=== PATIENT | male | born 1960 | race Caucasian/White ===

== ENCOUNTER 2018-06-13 11:32 | Emergency (ER) | payer BC, SELFPAY ==
[2018-06-13] VITALS (11 sets, daily range): BP systolic 139–161; BP diastolic 97–111; PULSE 116–130; RESP 17–23; TEMP 37.7; O2SAT 94–98
--- NOTE | 2018-06-13 11:42 | DI.RAD.S_ITS ---
PROCEDURE: XR CHEST 1V INDICATIONS: chest pain TECHNIQUE: One view of the chest was acquired. COMPARISON: [facility], , CHEST 2 VIEW, 06/10/2017, 9:02. FINDINGS: Surgical changes and devices: None. Lungs and pleura: Elevation of the right diaphragm is present, similar to the prior study. There may be areas of scarring versus atelectasis at the right lung base. No focal consolidation, effusion, or pneumothorax is evident. Mediastinum: Mediastinal contours appear normal. Heart size is normal. Bones and chest wall: No suspicious bony lesions. Overlying soft tissues appear unremarkable. IMPRESSION: Stable chest. No acute cardiopulmonary process is evident. Dictated by: Dileep Haney M.D. on 06/13/2018 at 11:33 Approved by: Dileep Haney M.D. on 06/13/2018 at 11:36
[2018-06-13 12:01] LABS: Add Manual Diff / Slide Review NO; Basophils Percent Auto 0.3 % (0-2); Hematocrit 41.5 % (41-53); Hemoglobin 14.2 g/dL (13.5-17.5); Lymphocytes Percent Auto 10.3 % (25-40); Mean Corpuscular HGB Conc 34.2 % (30-36); Mean Corpuscular Hemoglobin 33.7 PG (26-34); Mean Corpuscular Volume 98.6 fL (80-100); Monocytes Percent Auto 5.1 % (3-14); Neutrophils Absolute Auto 9800 /uL (1500-7000); Neutrophils Percent Auto 84.3 % (50-75); Platelet Count 244 X10^3/uL (150-400); Red Blood Cell Count 4.21 X10^6/uL (4.5-5.9); Red Cell Distribution Width 13.9 % (11.6-14.8); White Blood Cell Count 11.6 X10^3/uL (4.5-11.0)
[2018-06-13 12:04] LABS: INR 0.9 (0.9-1.3); Prothrombin Time 10.7 SECONDS (10.1-12.7)
[2018-06-13 12:07] LABS: PTT Partial Thromboplastin Tim 25 SECONDS (26.4-36.2)
[2018-06-13 12:09] LABS: Alanine Aminotransferase 39 IU/L (21-72); Albumin 4.7 g/dL (3.5-5.0); Albumin Globulin Ratio 1.7 (1.0-2.8); Alkaline Phosphatase 64 U/L (38-126); Aspartate Aminotransferase 46 IU/L (17-59); BUN Creatinine Ratio 26.3 (6-22); Bilirubin Total 0.7 mg/dL (0.2-1.3); Blood Urea Nitrogen 21 mg/dL (9-20); Calcium 9.4 mg/dL (8.4-10.2); Carbon Dioxide 23 mmol/L (22-32); Chloride 99 mmol/L (98-107); Creatine Kinase 109 U/L (55-170); Estimated Glomerular Filt Rate > 60.0 mL/min (>60); Globulin 2.7 g/dL (1.7-4.1); Glucose 138 mg/dL (70-100); Lipase 380 U/L (23-300); Potassium 3.8 mmol/L (3.4-5.1); Sodium 139 mmol/L (137-145); Total Protein 7.4 g/dL (6.3-8.2)
[2018-06-13 12:23] LABS: Troponin I < 0.012 ng/mL (0.01-0.034)
--- NOTE | 2018-06-13 12:25 | DI.CT.S_ITS ---
PROCEDURE: CT HEAD/BRAIN WO CON INDICATIONS: syncope TECHNIQUE: Noncontrast 4.5 mm thick angled axial sections acquired from the foramen magnum to the vertex, with coronal and sagittal reformats. For radiation dose reduction, the following was used: automated exposure control, adjustment of mA and/or kV according to patient size. COMPARISON: 09/10/12. FINDINGS: Image quality: Excellent. CSF spaces: Basal cisterns are patent. No extra-axial fluid collections. Ventricles are normal in size and shape. Brain: No intracranial hemorrhage, mass, or mass effect. Morse-white matter interface is preserved. Skull and face: Calvarium and visualized facial bones are intact, without suspicious lesions. Sinuses: Visualized sinuses and mastoids are clear. IMPRESSION: 1. No acute intracranial abnormality. Dictated by: Twin Ravi M.D. on 06/13/2018 at 13:15 Approved by: Twin Ravi M.D. on 06/13/2018 at 13:17
[2018-06-13 12:27] LABS: CKMB % Relative Index 0.6 % (1.5-5.0); HEMOLYSIS < 15 (0-50)
--- NOTE | 2018-06-13 12:32 | ED.SYNCOPE ---
HPI - Syncope General Chief Complaint: Syncope Stated Complaint: Syncope Time Seen by Provider: 06/13/18 12:01 Source: patient, EMS and other (co-woker) Mode of arrival: EMS Limitations: no limitations History of Present Illness HPI narrative: This is a 58-year-old male who comes to the emergency department with complaint of syncope. Patient was in a meeting today. He had a witnessed syncopal episode where he had loss of consciousness was out for at least 45-60 seconds. Sounds like he returned to mental baseline fairly quickly. He did have an episode of emesis about the same time he had loss of consciousness. Afterwards his co-worker noted he was very shaky and pale. They called for help when EMS came. Patient has continued to feel shaky. He denies any chest pressure, no shortness of breath. He felt very hot right before he had a loss of consciousness. He denies any nausea or vomiting otherwise and has not had any since then. Denies any swelling in his lower extremities. He has not had similar episodes in the past. He denies any headache, no vision changes, no numbness or weakness. Patient does take medication for blood pressure including lisinopril in the morning which he took and his amlodipine at night she normally takes. He denies any diabetes, dyslipidemia chronic kidney disease. He does drink 3-4 alcoholic drinks daily, he states that he did have his normal amount last night. He denies any illicit. He denies any known cardiac, pulmonary or DVT/embolic history. Related Data Home Medications Medication Instructions Recorded Confirmed amlodipine 10 mg PO QPM 06/13/18 06/13/18 lisinopril-hydrochlorothiazide 1 tab PO DAILY 06/13/18 06/13/18 [id number]-[id number]-OM-lycopen-lutein 1 tab PO DAILY 06/13/18 06/13/18 [Centrum Silver] Allergies Allergy/AdvReac Type Severity Reaction Status Date / Time No Known Drug Allergies Allergy Verified 06/13/18 11:42 Review of Systems Review of Systems All systems reviewed & are unremarkable except as noted in HPI and below Constitutional Denies chills, Denies excessive sweating, Denies fever(s), Denies frequent falls, Denies headache(s), Denies lethargy and Denies weakness ENT Ears, Nose, Mouth, and Throat: Denies headache(s) and Denies neck pain Cardiovascular Denies chest pain, Denies diaphoresis, Reports syncope, Denies edema, Denies irregular heart rhythm, Denies lightheadedness, Denies radiating jaw, neck or arm pain, Denies palpitations, Denies dyspnea and Denies orthopnea Respiratory Denies chest congestion, Denies cough, Denies pain on inspiration, Denies pain with cough, Denies dyspnea and Denies wheezing Gastrointestinal Gastrointestinal: Denies abdominal pain, Denies change in bowel habits, Denies fecal incontinence, Denies diarrhea, Denies nausea and Reports vomiting (X1 was syncopal episode) Genitourinary Denies dysuria, Denies urinary frequency, Denies urinary hesitancy and Denies urinary incontinence Musculoskeletal Denies back pain, Denies neck pain and Denies numbness Neurologic Denies abnormal speech, Denies confusion, Reports syncope, Denies frequent falls, Denies headache(s), Denies focal weakness, Denies numbness, Reports tremor(s) (Feel shaky) and Denies weakness Psychiatric Denies confusion Endocrine Denies excessive sweating and Denies palpitations Allergic/Immunologic Denies wheezing [facility] Medical History Hypertension (Acute) Surgical History H/O hernia repair (Acute) History of tonsillectomy (Acute) Family History Grandmother No problems noted. Social History Smoking Status: Unknown if ever smoked alcohol intake: current substance use type: does not use Exam Narrative Exam Narrative: GEN: Well-nourished male, alert and oriented x 3, patient appears to be in mild distress. HEENT: Atraumatic, pupils are equal round reactive to light, extraocular movements are intact, nares are clear, TMs are clear with no fluid, there is no conjunctival pallor. Throat is clear without any exudates, erythema, tonsillar enlargement or uvular deviation, HEART: Tachycardic but regular rate and rhythm without murmur, clicks, rubs. Pulses are equal in upper and lower extremities. LUNGS:Lungs clear to auscultation, no wheezes, rales, crackles, chest moves symmetrically, no tachypnea, no accessory muscle use. ABD:bowel sounds normal, soft, non-tender, no guarding, rebound, rigidity, no masses noted, no hepatosplenomegaly, no bruit or pulsatile mass. :No CVA tenderness MSCL: Non-tender, no muscle atrophy, muscles strength 5/5 upper and lower extremities, full range of motion NEURO:CN 2-12 intact, sensation normal, reflexes 2/4 upper and lower extremities, patient has slight generalized tremor. Initial Vital Signs Initial Vital Signs: Vital Signs Temperature 99.9 F H 06/13/18 11:38 Pulse Rate 130 H 06/13/18 11:38 Respiratory Rate 23 06/13/18 11:38 Blood Pressure 156/99 H 06/13/18 11:38 Pulse Oximetry 96 06/13/18 11:38 Course Orders Ordered: ED Orders 06/13/18 11:42 XR chest 1V Stat EKG-12 Lead Stat 06/13/18 11:51 Complete Blood Count AUTO DIFF Stat Comprehensive Metabolic Panel Stat Ethanol (ETOH) Stat Lipase Stat Partial Thromboplastin Time Stat Prothrombin Time INR Stat Troponin & CK Cardiac Panel Stat 06/13/18 12:25 CT head/brain wo con Stat 06/13/18 14:42 CT angio chest PE protocol Stat 06/13/18 14:43 US abdomen limited Stat 06/13/18 16:18 Urine Drug Screen, Rapid Stat Discontinued Medications Sodium Chloride (Normal Saline 0.9%) 1,000 mls @ 1,000 mls/hr IV BOLUS ONE Stop: 06/13/18 13:48 Last Infusion: 06/13/18 14:27 Dose: 0 mls/hr Admin: 06/13/18 12:53 Dose: 1,000 mls/hr Sodium Chloride (Normal Saline 0.9%) 500 mls @ 1,000 mls/hr IV BOLUS ONE Stop: 06/13/18 14:47 Last Admin: 06/13/18 14:29 Dose: Sodium Chloride (Normal Saline 0.9%) 1,000 mls @ 1,000 mls/hr IV BOLUS ONE Stop: 06/13/18 15:27 Last Admin: 06/13/18 14:30 Dose: 1,000 mls/hr Lorazepam (Ativan) 1 mg IV NOW ONE Stop: 06/13/18 12:50 Last Admin: 06/13/18 12:53 Dose: 1 mg Lorazepam (Ativan) 1 mg PO NOW ONE Stop: 06/13/18 14:39 Last Admin: 06/13/18 14:56 Dose: Lorazepam (Ativan) 1 mg IV NOW ONE Stop: 06/13/18 14:57 Last Admin: 06/13/18 14:57 Dose: 1 mg Vital Signs - 8 hr 06/13/18 11:38 06/13/18 12:00 06/13/18 12:30 Temperature 99.9 F H Pulse Rate 130 H 122 H 126 H Respiratory Rate 23 17 17 Blood Pressure 156/99 H Blood Pressure [Left Arm] 139/101 H 161/97 H Pulse Oximetry 96 95 94 06/13/18 13:09 06/13/18 13:30 06/13/18 14:00 Temperature Pulse Rate 124 H 123 H 124 H Respiratory Rate 21 20 21 Blood Pressure Blood Pressure [Left Arm] 161/104 H 154/111 H 151/103 H Pulse Oximetry 94 95 95 06/13/18 14:36 06/13/18 15:31 06/13/18 16:05 Temperature Pulse Rate 123 H 116 H 119 H Respiratory Rate 18 17 17 Blood Pressure Blood Pressure [Left Arm] 154/110 H 146/107 H 152/107 H Pulse Oximetry 95 94 98 06/13/18 16:30 06/13/18 17:00 Temperature Pulse Rate 117 H 129 H Respiratory Rate 19 Blood Pressure Blood Pressure [Left Arm] 143/105 H 156/109 H Pulse Oximetry 94 95 MDM - Syncope Lab Data Attestation: I reviewed the patient's lab results. Result diagrams: 06/13/18 11:51 06/13/18 11:51 Lab Results 06/13/18 06/13/18 06/13/18 Range/Units 11:51 11:51 11:51 WBC 11.6 H (4.5-11.0) X10^3/uL RBC 4.21 L (4.5-5.9) X10^6/uL Hgb 14.2 (13.5-17.5) g/dL Hct 41.5 (41-53) % MCV 98.6 (80-100) fL MCH 33.7 (26-34) PG MCHC 34.2 (30-36) % RDW 13.9 (11.6-14.8) % Plt Count 244 (150-400) X10^3/uL Neut % (Auto) 84.3 H (50-75) % Lymph % (Auto) 10.3 L (25-40) % [place] % (Auto) 5.1 (3-14) % Eos % (Auto) 0.0 L (2-4) % Baso % (Auto) 0.3 (0-2) % Neut # (Auto) 9800 H (5585-0602) /uL PT 10.7 (10.1-12.7) SECONDS INR 0.9 (0.9-1.3) APTT 25 L (26.4-36.2) SECONDS Sodium 139 (137-145) mmol/L Potassium 3.8 (3.4-5.1) mmol/L Chloride 99 (98-107) mmol/L Carbon Dioxide 23 (22-32) mmol/L BUN 21 H (9-20) mg/dL Creatinine 0.80 (0.66-1.25) mg/dL Estimated GFR > 60.0 (>60) mL/min BUN/Creatinine Ratio 26.3 H (6-22) Glucose 138 H (70-100) mg/dL Calcium 9.4 (8.4-10.2) mg/dL Total Bilirubin 0.7 (0.2-1.3) mg/dL AST 46 (17-59) IU/L ALT 39 (21-72) IU/L Alkaline Phosphatase 64 (38-126) U/L Total Creatine Kinase 109 (55-170) U/L CK-MB (CK-2) 0.70 (<2.37) ng/mL CK-MB (CK-2) Rel Index 0.6 L (1.5-5.0) % Troponin I < 0.012 (0.01-0.034) ng/mL Total Protein 7.4 (6.3-8.2) g/dL Albumin 4.7 (3.5-5.0) g/dL Globulin 2.7 (1.7-4.1) g/dL Albumin/Globulin Ratio 1.7 (1.0-2.8) Lipase 380 H (23-300) U/L Urine Opiates Screen (Negative) Ur Oxycodone Screen (Negative) Urine Methadone Screen (Negative) Ur Barbiturates Screen (Negative) U Tricyclic Antidepress (Negative) Ur Phencyclidine Scrn (Negative) Ur Amphetamines Screen (Negative) U Methamphetamines Scrn (Negative) Ur MDMA Scrn (Ecstasy) (Negative) U Benzodiazepines Scrn (Negative) Urine Cocaine Screen (Negative) U Marijuana (THC) Screen (Negative) Ethyl Alcohol mg/dL 06/13/18 06/13/18 Range/Units 11:51 16:18 WBC (4.5-11.0) X10^3/uL RBC (4.5-5.9) X10^6/uL Hgb (13.5-17.5) g/dL Hct (41-53) % MCV (80-100) fL MCH (26-34) PG MCHC (30-36) % RDW (11.6-14.8) % Plt Count (150-400) X10^3/uL Neut % (Auto) (50-75) % Lymph % (Auto) (25-40) % [place] % (Auto) (3-14) % Eos % (Auto) (2-4) % Baso % (Auto) (0-2) % Neut # (Auto) (8370-3865) /uL PT (10.1-12.7) SECONDS INR (0.9-1.3) APTT (26.4-36.2) SECONDS Sodium (137-145) mmol/L Potassium (3.4-5.1) mmol/L Chloride (98-107) mmol/L Carbon Dioxide (22-32) mmol/L BUN (9-20) mg/dL Creatinine (0.66-1.25) mg/dL Estimated GFR (>60) mL/min BUN/Creatinine Ratio (6-22) Glucose (70-100) mg/dL Calcium (8.4-10.2) mg/dL Total Bilirubin (0.2-1.3) mg/dL AST (17-59) IU/L ALT (21-72) IU/L Alkaline Phosphatase (38-126) U/L Total Creatine Kinase (55-170) U/L CK-MB (CK-2) (<2.37) ng/mL CK-MB (CK-2) Rel Index (1.5-5.0) % Troponin I (0.01-0.034) ng/mL Total Protein (6.3-8.2) g/dL Albumin (3.5-5.0) g/dL Globulin (1.7-4.1) g/dL Albumin/Globulin Ratio (1.0-2.8) Lipase (23-300) U/L Urine Opiates Screen Negative (Negative) Ur Oxycodone Screen Negative (Negative) Urine Methadone Screen Negative (Negative) Ur Barbiturates Screen Negative (Negative) U Tricyclic Antidepress Negative (Negative) Ur Phencyclidine Scrn Negative (Negative) Ur Amphetamines Screen Negative (Negative) U Methamphetamines Scrn Negative (Negative) Ur MDMA Scrn (Ecstasy) Negative (Negative) U Benzodiazepines Scrn Negative (Negative) Urine Cocaine Screen Negative (Negative) U Marijuana (THC) Screen Negative (Negative) Ethyl Alcohol 16 mg/dL Point of Care Testing Glucose POC 118 Urine Dip Bedside Urine Glucose Negative Bedside Urine Bilirubin - Negative Bedside Urine Ketone ++ 40 Urine Specific [place] 1.015 Bedside Urine Occult Blood - Negative Bedside Urine pH 7.0 Bedside Urine Protein - Negative Bedside Urine Urobilinogen - Negative Bedside Urine Nitrite - Negative Bedside Urine Leukocytes - Negative Esterase Imaging Data Chest x-ray: Radiologist's impression: [address] [address] XRay Report Signed Patient: Power Viveros I MR#: [id number] : 1960 Acct:[id number] Age/Sex: 58 / M Date of Service: 06/13/18 Loc: ED Accession Number: [id number] Procedure: XR chest 1V Ordering Provider: Harini Barahona D.O. PROCEDURE: XR CHEST 1V INDICATIONS: chest pain TECHNIQUE: One view of the chest was acquired. COMPARISON: [facility], CHEST 2 VIEW, 06/10/2017, 9:02. FINDINGS: Surgical changes and devices: None. Lungs and pleura: Elevation of the right diaphragm is present, similar to the prior study. There may be areas of scarring versus atelectasis at the right lung base. No focal consolidation, effusion, or pneumothorax is evident. Mediastinum: Mediastinal contours appear normal. Heart size is normal. Bones and chest wall: No suspicious bony lesions. Overlying soft tissues appear unremarkable. IMPRESSION: Stable chest. No acute cardiopulmonary process is evident. Dictated by: Dileep Haney M.D. on 06/13/2018 at 11:33 Approved by: Dileep Haney M.D. on 06/13/2018 at 11:36 chest CTA: Radiologist's impression: [address] [address] [address] Scan Report Signed Patient: JackelineJanuary MR#: [id number] : 1960 Acct:[id number] Age/Sex: 58 / M Date of Service: 06/13/18 Loc: ED Accession Number: [id number] Procedure: CT angio chest PE protocol Ordering Provider: Harini Barahona D.O. PROCEDURE: CT ANGIO CHEST PE PROTOCOL INDICATIONS: syncope, tachycardia TECHNIQUE: After the administration of intravenous contrast, 2 mm thick sections acquired from the pulmonary apices to the posterior costophrenic angles. 3-dimensional maximum intensity projection (MIP) coronal and sagittal reformats were then acquired through the thorax. For radiation dose reduction, the following was used: automated exposure control, adjustment of mA and/or kV according to patient size. COMPARISON: [facility], CT, THORAX WITH CONTRAST, 02/21/2015, 9:23. [facility], CR, XR CHEST 1V, 06/13/2018, 12:24. FINDINGS: Image quality: There is slight motion artifact. Pulmonary arteries: There is suboptimal contrast opacification of the pulmonary arteries with nondiagnostic evaluation beyond the level of the right and left lobar pulmonary arteries. Lungs and pleura: There is mild atelectasis within the right lower lobe posteriorly. Minimal atelectasis also demonstrated in the left lower lobe. No definite consolidation. No pleural effusions or pneumothorax. Central and peripheral airways are patent. Mediastinum: Heart size is normal, without pericardial effusion. No mediastinal or hilar adenopathy. Thoracic aorta is normal in caliber and enhancement. There is a small hernia with mild concentric wall thickening of the distal esophagus. Bones and chest wall: No suspicious bony lesions. Ribs and thoracic spine appear intact throughout. Thyroid gland demonstrates a small hypoattenuating nodule in the left lobe measuring approximately 0.6 cm. No axillary or supraclavicular adenopathy. Abdomen: There is elevation of the right hemidiaphragm redemonstrated. There is hyperattenuation of the visualized liver compatible with fatty infiltration. Colonic diverticulosis is noted in the visualized upper abdomen. IMPRESSION: 1. Limited study for pulmonary embolism with nondiagnostic evaluation beyond the level of the main right or left lobar pulmonary arteries. 2. Mild atelectasis in the lung bases, right greater than left. 3. Small hilar hernia with mild concentric wall thickening in the distal esophagus suggestive of a nonspecific esophagitis. The findings may be associated with reflux. Dictated by: Twin Ravi M.D. on 06/13/2018 at 15:39 Approved by: Twin Ravi M.D. on 06/13/2018 at 15:46 US - abdomen: Radiologist's impression: [address] [address] Ultrasound Report Signed Patient: JackelineJanuary MR#: [id number] : 1960 Acct:[id number] Age/Sex: 58 / M Date of Service: 06/13/18 Loc: ED Accession Number: [id number] Procedure: US abdomen limited Ordering Provider: Harini Barahona D.O. PROCEDURE: US ABDOMEN LIMITED INDICATIONS: elevated lipase, syncope TECHNIQUE: Real-time focused scanning was performed of the abdomen, with image documentation. COMPARISON: [facility], CT, CT ANGIO CHEST PE PROTOCOL, 06/13/2018, 14:58. FINDINGS: Image portions of the liver demonstrate diffusely increased echogenicity, which does result in difficulty evaluating the liver for liver lesions. No large liver lesions are evident. No intrahepatic or extrahepatic biliary dilatation is appreciated. The common bile duct measures up to approximately 6 mm in diameter. The gallbladder is slightly small in size. No cholelithiasis or gallbladder wall inflammation is appreciated. The pancreas is obscured by bowel gas. IMPRESSION: 1. No cholelithiasis or evidence of acute cholecystitis. 2. Hepatic steatosis. Please correlate clinically to exclude other chronic diseases. Dictated by: Dileep Haney M.D. on 06/13/2018 at 15:51 Approved by: Dileep Haney M.D. on 06/13/2018 at 15:52 ECG Data Attestation: I personally reviewed and interpreted this ECG as follows: Prior ECG tracings: not available for review Interpretation: Sinus tachycardia with a ventricular rate of 120 P are interval of 181 [place] 93 and QTC of 378. Patient does not have any clear ST changes. Does have some PVCs noted. Patient has Q-wave in 2 3 in AVF. MDM Narrative Medical decision making narrative: Patient comes in with syncopal episode, he continues to be tachycardic and shaky throughout his stay. He does seem to respond a little bit Ativan but not in its entirety and he had 2 L of fluid. Patient had cardiac workup including a PE protocol Um an abdominal ultrasound is his lipase was slightly elevated. Discussed with patient he has a decent alcohol intake and per his co-worker to a nursing they have been concerned about his alcohol intake for a long time. We discussed this could be some withdrawal symptoms which patient deny talked about he states he has had a little bit of symptoms in the past but not regularly. We also discussed other causes including a cardiac cause, he could have a small pulmonary emboli as his CTA was not fully diagnostic in the smaller vessels versus other cause and I recommend observation overnight. Patient is reluctant to do this, he does seem alert and competent and oriented appropriately. His significant other was his girlfriend is at bedside she is also aware of our recommendations and patient prefers to return he did discuss the risk and benefits with us. As patient sign out against medical advice as I do not recommend sending him home, I did offer to contact his primary care and spoke with Dr. Lehman who is covering for Shelly Aldana his provider. Updated her on today's findings and concerns. Discharge Plan Departure Patient Disposition: Left Against Medical Advice Clinical Impression: Syncope, Tachycardia Discharge Date/Time: 06/13/18 17:22 Interventions: ED Discharge Assessment Last Done: 06/13/18 17:19 Instructions: DI for Syncope in Adults (Fainting) Activity Restrictions/Additional Instructions: Return to the ER at any time if you are feeling worse, have recurrent syncope/passing out, chest pain, shortness of breath, persistent vomiting, black or bloody stools, weakness, altered mental status or other new or concerning symptoms. We cannot rule out a cardiac cause (heart attack, etc), pulmonary or other cause of your symptoms today. Follow up with your primary care physician in the next 24 hours for recheck. Continue your home medications. Prescriptions: No Action amlodipine 10 mg tablet 10 mg PO QPM RF: 0 lisinopril-hydrochlorothiazide 20-25 mg tablet 1 tab PO DAILY RF: 0 oilreqzr-eyw-RV-lycopen-lutein [Centrum Silver] 0.4-300-250 mg-mcg-mcg Tablet 1 tab PO DAILY RF: 0 Referrals: Shelly Aldana PA-C [Primary Care Provider] - Stand Alone Forms: Against Medical Advice
--- NOTE | 2018-06-13 12:46 | ED_ITS ---
HPI - Syncope General Chief Complaint: Syncope Stated Complaint: Syncope Time Seen by Provider: 06/13/18 12:01 Source: patient, EMS and other (co-woker) Mode of arrival: EMS Limitations: no limitations History of Present Illness HPI narrative: This is a 58-year-old male who comes to the emergency department with complaint of syncope. Patient was in a meeting today. He had a witnessed syncopal episode where he had loss of consciousness was out for at least 45-60 seconds. Sounds like he returned to mental baseline fairly quickly. He did have an episode of emesis about the same time he had loss of consciousness. Afterwards his co-worker noted he was very shaky and pale. They called for help when EMS came. Patient has continued to feel shaky. He denies any chest pressure, no shortness of breath. He felt very hot right before he had a loss of consciousness. He denies any nausea or vomiting otherwise and has not had any since then. Denies any swelling in his lower extremities. He has not had similar episodes in the past. He denies any headache, no vision changes, no numbness or weakness. Patient does take medication for blood pressure including lisinopril in the morning which he took and his amlodipine at night she normally takes. He denies any diabetes, dyslipidemia chronic kidney disease. He does drink 3-4 alcoholic drinks daily, he states that he did have his normal amount last night. He denies any illicit. He denies any known cardiac, pulmonary or DVT/embolic history. Related Data Home Medications Medication Instructions Recorded Confirmed amlodipine 10 mg PO QPM 06/13/18 06/13/18 lisinopril-hydrochlorothiazide 1 tab PO DAILY 06/13/18 06/13/18 [id number]-[id number]-AQ-lycopen-lutein 1 tab PO DAILY 06/13/18 06/13/18 [Centrum Silver] Allergies Allergy/AdvReac Type Severity Reaction Status Date / Time No Known Drug Allergies Allergy Verified 06/13/18 11:42 Review of Systems Review of Systems All systems reviewed & are unremarkable except as noted in HPI and below Constitutional Denies chills, Denies excessive sweating, Denies fever(s), Denies frequent falls , Denies headache(s), Denies lethargy and Denies weakness ENT Ears, Nose, Mouth, and Throat: Denies headache(s) and Denies neck pain Cardiovascular Denies chest pain, Denies diaphoresis, Reports syncope, Denies edema, Denies irregular heart rhythm, Denies lightheadedness, Denies radiating jaw, neck or arm pain, Denies palpitations, Denies dyspnea and Denies orthopnea Respiratory Denies chest congestion, Denies cough, Denies pain on inspiration, Denies pain with cough, Denies dyspnea and Denies wheezing Gastrointestinal Gastrointestinal: Denies abdominal pain, Denies change in bowel habits, Denies fecal incontinence, Denies diarrhea, Denies nausea and Reports vomiting (X1 was syncopal episode) Genitourinary Denies dysuria, Denies urinary frequency, Denies urinary hesitancy and Denies urinary incontinence Musculoskeletal Denies back pain, Denies neck pain and Denies numbness Neurologic Denies abnormal speech, Denies confusion, Reports syncope, Denies frequent falls , Denies headache(s), Denies focal weakness, Denies numbness, Reports tremor(s) (Feel shaky) and Denies weakness Psychiatric Denies confusion Endocrine Denies excessive sweating and Denies palpitations Allergic/Immunologic Denies wheezing [facility] Medical History Hypertension (Acute) Surgical History H/O hernia repair (Acute) History of tonsillectomy (Acute) Family History Grandmother No problems noted. Social History Smoking Status: Unknown if ever smoked alcohol intake: current substance use type: does not use Exam Narrative Exam Narrative: GEN: Well-nourished male, alert and oriented x 3, patient appears to be in mild distress. HEENT: Atraumatic, pupils are equal round reactive to light, extraocular movements are intact, nares are clear, TMs are clear with no fluid, there is no conjunctival pallor. Throat is clear without any exudates, erythema, tonsillar enlargement or uvular deviation, HEART: Tachycardic but regular rate and rhythm without murmur, clicks, rubs. Pulses are equal in upper and lower extremities. LUNGS:Lungs clear to auscultation, no wheezes, rales, crackles, chest moves symmetrically, no tachypnea, no accessory muscle use. ABD:bowel sounds normal, soft, non-tender, no guarding, rebound, rigidity, no masses noted, no hepatosplenomegaly, no bruit or pulsatile mass. :No CVA tenderness MSCL: Non-tender, no muscle atrophy, muscles strength 5/5 upper and lower extremities, full range of motion NEURO:CN 2-12 intact, sensation normal, reflexes 2/4 upper and lower extremities , patient has slight generalized tremor. Initial Vital Signs Initial Vital Signs: Vital Signs Temperature 99.9 F H 06/13/18 11:38 Pulse Rate 130 H 06/13/18 11:38 Respiratory Rate 23 06/13/18 11:38 Blood Pressure 156/99 H 06/13/18 11:38 Pulse Oximetry 96 06/13/18 11:38 Course Orders Ordered: ED Orders 06/13/18 11:42 XR chest 1V Stat EKG-12 Lead Stat 06/13/18 11:51 Complete Blood Count AUTO DIFF Stat Comprehensive Metabolic Panel Stat Ethanol (ETOH) Stat Lipase Stat Partial Thromboplastin Time Stat Prothrombin Time INR Stat Troponin & CK Cardiac Panel Stat 06/13/18 12:25 CT head/brain wo con Stat 06/13/18 14:42 CT angio chest PE protocol Stat 06/13/18 14:43 US abdomen limited Stat 06/13/18 16:18 Urine Drug Screen, Rapid Stat Discontinued Medications Sodium Chloride (Normal Saline 0.9%) 1,000 mls @ 1,000 mls/hr IV BOLUS ONE Stop: 06/13/18 13:48 Last Infusion: 06/13/18 14:27 Dose: 0 mls/hr Admin: 06/13/18 12:53 Dose: 1,000 mls/hr Sodium Chloride (Normal Saline 0.9%) 500 mls @ 1,000 mls/hr IV BOLUS ONE Stop: 06/13/18 14:47 Last Admin: 06/13/18 14:29 Dose: Sodium Chloride (Normal Saline 0.9%) 1,000 mls @ 1,000 mls/hr IV BOLUS ONE Stop: 06/13/18 15:27 Last Admin: 06/13/18 14:30 Dose: 1,000 mls/hr Lorazepam (Ativan) 1 mg IV NOW ONE Stop: 06/13/18 12:50 Last Admin: 06/13/18 12:53 Dose: 1 mg Lorazepam (Ativan) 1 mg PO NOW ONE Stop: 06/13/18 14:39 Last Admin: 06/13/18 14:56 Dose: Lorazepam (Ativan) 1 mg IV NOW ONE Stop: 06/13/18 14:57 Last Admin: 06/13/18 14:57 Dose: 1 mg Vital Signs - 8 hr 06/13/18 11:38 06/13/18 12:00 06/13/18 12:30 Temperature 99.9 F H Pulse Rate 130 H 122 H 126 H Respiratory Rate 23 17 17 Blood Pressure 156/99 H Blood Pressure [Left Arm] 139/101 H 161/97 H Pulse Oximetry 96 95 94 06/13/18 13:09 06/13/18 13:30 06/13/18 14:00 Temperature Pulse Rate 124 H 123 H 124 H Respiratory Rate 21 20 21 Blood Pressure Blood Pressure [Left Arm] 161/104 H 154/111 H 151/103 H Pulse Oximetry 94 95 95 06/13/18 14:36 06/13/18 15:31 06/13/18 16:05 Temperature Pulse Rate 123 H 116 H 119 H Respiratory Rate 18 17 17 Blood Pressure Blood Pressure [Left Arm] 154/110 H 146/107 H 152/107 H Pulse Oximetry 95 94 98 06/13/18 16:30 06/13/18 17:00 Temperature Pulse Rate 117 H 129 H Respiratory Rate 19 Blood Pressure Blood Pressure [Left Arm] 143/105 H 156/109 H Pulse Oximetry 94 95 MDM - Syncope Lab Data Attestation: I reviewed the patient's lab results. Result diagrams: 06/13/18 11:51 06/13/18 11:51 Lab Results 06/13/18 06/13/18 06/13/18 Range/Units 11:51 11:51 11:51 WBC 11.6 H (4.5-11.0) X10^3/uL RBC 4.21 L (4.5-5.9) X10^6/uL Hgb 14.2 (13.5-17.5) g/dL Hct 41.5 (41-53) % MCV 98.6 (80-100) fL MCH 33.7 (26-34) PG MCHC 34.2 (30-36) % RDW 13.9 (11.6-14.8) % Plt Count 244 (150-400) X10^3/uL Neut % (Auto) 84.3 H (50-75) % Lymph % (Auto) 10.3 L (25-40) % [place] % (Auto) 5.1 (3-14) % Eos % (Auto) 0.0 L (2-4) % Baso % (Auto) 0.3 (0-2) % Neut # (Auto) 9800 H (6717-6274) /uL PT 10.7 (10.1-12.7) SECONDS INR 0.9 (0.9-1.3) APTT 25 L (26.4-36.2) SECONDS Sodium 139 (137-145) mmol/L Potassium 3.8 (3.4-5.1) mmol/L Chloride 99 (98-107) mmol/L Carbon Dioxide 23 (22-32) mmol/L BUN 21 H (9-20) mg/dL Creatinine 0.80 (0.66-1.25) mg/dL Estimated GFR > 60.0 (>60) mL/min BUN/Creatinine Ratio 26.3 H (6-22) Glucose 138 H (70-100) mg/dL Calcium 9.4 (8.4-10.2) mg/dL Total Bilirubin 0.7 (0.2-1.3) mg/dL AST 46 (17-59) IU/L ALT 39 (21-72) IU/L Alkaline Phosphatase 64 (38-126) U/L Total Creatine Kinase 109 (55-170) U/L CK-MB (CK-2) 0.70 (<2.37) ng/mL CK-MB (CK-2) Rel Index 0.6 L (1.5-5.0) % Troponin I < 0.012 (0.01-0.034) ng/mL Total Protein 7.4 (6.3-8.2) g/dL Albumin 4.7 (3.5-5.0) g/dL Globulin 2.7 (1.7-4.1) g/dL Albumin/Globulin Ratio 1.7 (1.0-2.8) Lipase 380 H (23-300) U/L Urine Opiates Screen (Negative) Ur Oxycodone Screen (Negative) Urine Methadone Screen (Negative) Ur Barbiturates Screen (Negative) U Tricyclic Antidepress (Negative) Ur Phencyclidine Scrn (Negative) Ur Amphetamines Screen (Negative) U Methamphetamines Scrn (Negative) Ur MDMA Scrn (Ecstasy) (Negative) U Benzodiazepines Scrn (Negative) Urine Cocaine Screen (Negative) U Marijuana (THC) Screen (Negative) Ethyl Alcohol mg/dL 06/13/18 06/13/18 Range/Units 11:51 16:18 WBC (4.5-11.0) X10^3/uL RBC (4.5-5.9) X10^6/uL Hgb (13.5-17.5) g/dL Hct (41-53) % MCV (80-100) fL MCH (26-34) PG MCHC (30-36) % RDW (11.6-14.8) % Plt Count (150-400) X10^3/uL Neut % (Auto) (50-75) % Lymph % (Auto) (25-40) % [place] % (Auto) (3-14) % Eos % (Auto) (2-4) % Baso % (Auto) (0-2) % Neut # (Auto) (1702-3260) /uL PT (10.1-12.7) SECONDS INR (0.9-1.3) APTT (26.4-36.2) SECONDS Sodium (137-145) mmol/L Potassium (3.4-5.1) mmol/L Chloride (98-107) mmol/L Carbon Dioxide (22-32) mmol/L BUN (9-20) mg/dL Creatinine (0.66-1.25) mg/dL Estimated GFR (>60) mL/min BUN/Creatinine Ratio (6-22) Glucose (70-100) mg/dL Calcium (8.4-10.2) mg/dL Total Bilirubin (0.2-1.3) mg/dL AST (17-59) IU/L ALT (21-72) IU/L Alkaline Phosphatase (38-126) U/L Total Creatine Kinase (55-170) U/L CK-MB (CK-2) (<2.37) ng/mL CK-MB (CK-2) Rel Index (1.5-5.0) % Troponin I (0.01-0.034) ng/mL Total Protein (6.3-8.2) g/dL Albumin (3.5-5.0) g/dL Globulin (1.7-4.1) g/dL Albumin/Globulin Ratio (1.0-2.8) Lipase (23-300) U/L Urine Opiates Screen Negative (Negative) Ur Oxycodone Screen Negative (Negative) Urine Methadone Screen Negative (Negative) Ur Barbiturates Screen Negative (Negative) U Tricyclic Antidepress Negative (Negative) Ur Phencyclidine Scrn Negative (Negative) Ur Amphetamines Screen Negative (Negative) U Methamphetamines Scrn Negative (Negative) Ur MDMA Scrn (Ecstasy) Negative (Negative) U Benzodiazepines Scrn Negative (Negative) Urine Cocaine Screen Negative (Negative) U Marijuana (THC) Screen Negative (Negative) Ethyl Alcohol 16 mg/dL Point of Care Testing Glucose POC 118 Urine Dip Bedside Urine Glucose Negative Bedside Urine Bilirubin - Negative Bedside Urine Ketone ++ 40 Urine Specific [place] 1.015 Bedside Urine Occult Blood - Negative Bedside Urine pH 7.0 Bedside Urine Protein - Negative Bedside Urine Urobilinogen - Negative Bedside Urine Nitrite - Negative Bedside Urine Leukocytes - Negative Esterase Imaging Data Chest x-ray: Radiologist's impression: [address] [address] XRay Report Signed Patient: Power Viveros I MR#: [id number] : 1960 Acct:[id number] Age/Sex: 58 / M Date of Service: 06/13/18 Loc: ED Accession Number: [id number] Procedure: XR chest 1V Ordering Provider: Harini Barahona D.O. PROCEDURE: XR CHEST 1V INDICATIONS: chest pain TECHNIQUE: One view of the chest was acquired. COMPARISON: [facility], CHEST 2 VIEW, 06/10/2017, 9:02. FINDINGS: Surgical changes and devices: None. Lungs and pleura: Elevation of the right diaphragm is present, similar to the prior study. There may be areas of scarring versus atelectasis at the right lung base. No focal consolidation, effusion, or pneumothorax is evident. Mediastinum: Mediastinal contours appear normal. Heart size is normal. Bones and chest wall: No suspicious bony lesions. Overlying soft tissues appear unremarkable. IMPRESSION: Stable chest. No acute cardiopulmonary process is evident. Dictated by: Dileep Haney M.D. on 06/13/2018 at 11:33 Approved by: Dileep Haney M.D. on 06/13/2018 at 11:36 chest CTA: Radiologist's impression: [address] [address] [address] Scan Report Signed Patient: JackelineJanuary MR#: [id number] : 1960 Acct:[id number] Age/Sex: 58 / M Date of Service: 06/13/18 Loc: ED Accession Number: [id number] Procedure: CT angio chest PE protocol Ordering Provider: Harini Barahona D.O. PROCEDURE: CT ANGIO CHEST PE PROTOCOL INDICATIONS: syncope, tachycardia TECHNIQUE: After the administration of intravenous contrast, 2 mm thick sections acquired from the pulmonary apices to the posterior costophrenic angles. 3-dimensional maximum intensity projection (MIP) coronal and sagittal reformats were then acquired through the thorax. For radiation dose reduction, the following was used: automated exposure control, adjustment of mA and/or kV according to patient size. COMPARISON: [facility], CT, THORAX WITH CONTRAST, 02/21/2015, 9:23. [facility], CR, XR CHEST 1V, 06/13/2018, 12:24. FINDINGS: Image quality: There is slight motion artifact. Pulmonary arteries: There is suboptimal contrast opacification of the pulmonary arteries with nondiagnostic evaluation beyond the level of the right and left lobar pulmonary arteries. Lungs and pleura: There is mild atelectasis within the right lower lobe posteriorly. Minimal atelectasis also demonstrated in the left lower lobe. No definite consolidation. No pleural effusions or pneumothorax. Central and peripheral airways are patent. Mediastinum: Heart size is normal, without pericardial effusion. No mediastinal or hilar adenopathy. Thoracic aorta is normal in caliber and enhancement. There is a small hernia with mild concentric wall thickening of the distal esophagus. Bones and chest wall: No suspicious bony lesions. Ribs and thoracic spine appear intact throughout. Thyroid gland demonstrates a small hypoattenuating nodule in the left lobe measuring approximately 0.6 cm. No axillary or supraclavicular adenopathy. Abdomen: There is elevation of the right hemidiaphragm redemonstrated. There is hyperattenuation of the visualized liver compatible with fatty infiltration. Colonic diverticulosis is noted in the visualized upper abdomen. IMPRESSION: 1. Limited study for pulmonary embolism with nondiagnostic evaluation beyond the level of the main right or left lobar pulmonary arteries. 2. Mild atelectasis in the lung bases, right greater than left. 3. Small hilar hernia with mild concentric wall thickening in the distal esophagus suggestive of a nonspecific esophagitis. The findings may be associated with reflux. Dictated by: Twin Ravi M.D. on 06/13/2018 at 15:39 Approved by: Twin Ravi M.D. on 06/13/2018 at 15:46 US - abdomen: Radiologist's impression: [address] [address] Ultrasound Report Signed Patient: JackelineJanuary MR#: [id number] : 1960 Acct:[id number] Age/Sex: 58 / M Date of Service: 06/13/18 Loc: ED Accession Number: [id number] Procedure: US abdomen limited Ordering Provider: Harini Barahona D.O. PROCEDURE: US ABDOMEN LIMITED INDICATIONS: elevated lipase, syncope TECHNIQUE: Real-time focused scanning was performed of the abdomen, with image documentation. COMPARISON: [facility], CT, CT ANGIO CHEST PE PROTOCOL, 06/13/2018, 14:58. FINDINGS: Image portions of the liver demonstrate diffusely increased echogenicity, which does result in difficulty evaluating the liver for liver lesions. No large liver lesions are evident. No intrahepatic or extrahepatic biliary dilatation is appreciated. The common bile duct measures up to approximately 6 mm in diameter. The gallbladder is slightly small in size. No cholelithiasis or gallbladder wall inflammation is appreciated. The pancreas is obscured by bowel gas. IMPRESSION: 1. No cholelithiasis or evidence of acute cholecystitis. 2. Hepatic steatosis. Please correlate clinically to exclude other chronic diseases. Dictated by: Dileep Haney M.D. on 06/13/2018 at 15:51 Approved by: Dileep Haney M.D. on 06/13/2018 at 15:52 ECG Data Attestation: I personally reviewed and interpreted this ECG as follows: Prior ECG tracings: not available for review Interpretation: Sinus tachycardia with a ventricular rate of 120 P are interval of 181 [place] 93 and QTC of 378. Patient does not have any clear ST changes. Does have some PVCs noted. Patient has Q-wave in 2 3 in AVF. MDM Narrative Medical decision making narrative: Patient comes in with syncopal episode, he continues to be tachycardic and shaky throughout his stay. He does seem to respond a little bit Ativan but not in its entirety and he had 2 L of fluid. Patient had cardiac workup including a PE protocol Um an abdominal ultrasound is his lipase was slightly elevated. Discussed with patient he has a decent alcohol intake and per his co-worker to a nursing they have been concerned about his alcohol intake for a long time. We discussed this could be some withdrawal symptoms which patient deny talked about he states he has had a little bit of symptoms in the past but not regularly. We also discussed other causes including a cardiac cause, he could have a small pulmonary emboli as his CTA was not fully diagnostic in the smaller vessels versus other cause and I recommend observation overnight. Patient is reluctant to do this, he does seem alert and competent and oriented appropriately. His significant other was his girlfriend is at bedside she is also aware of our recommendations and patient prefers to return he did discuss the risk and benefits with us. As patient sign out against medical advice as I do not recommend sending him home, I did offer to contact his primary care and spoke with Dr. Lehman who is covering for Shelly Aldana his provider. Updated her on today's findings and concerns. Discharge Plan Departure Patient Disposition: Left Against Medical Advice Clinical Impression: Syncope, Tachycardia Discharge Date/Time: 06/13/18 17:22 Interventions: ED Discharge Assessment Last Done: 06/13/18 17:19 Instructions: DI for Syncope in Adults (Fainting) Activity Restrictions/Additional Instructions: Return to the ER at any time if you are feeling worse, have recurrent syncope/ passing out, chest pain, shortness of breath, persistent vomiting, black or bloody stools, weakness, altered mental status or other new or concerning symptoms. We cannot rule out a cardiac cause (heart attack, etc), pulmonary or other cause of your symptoms today. Follow up with your primary care physician in the next 24 hours for recheck. Continue your home medications. Prescriptions: No Action amlodipine 10 mg tablet 10 mg PO QPM RF: 0 lisinopril-hydrochlorothiazide 20-25 mg tablet 1 tab PO DAILY RF: 0 [id number]-UA-lycopen-lutein [Centrum Silver] 0.4-300-250 mg-mcg-mcg Tablet 1 tab PO DAILY RF: 0 Referrals: Shelly Aldana PA-C [Primary Care Provider] - Stand Alone Forms: Against Medical Advice
[2018-06-13] MEDS: SODIUM CHLORIDE 0.9% 1,000 ML 1000 ML IV ×2 (12:53→14:30)
[2018-06-13] MEDS: LORazepam 2 MG/ML SYRINGE 1 MG IV ×2 (12:53→14:57)
[2018-06-13 13:09] LABS: Ethanol (ETOH) 16 mg/dL
--- NOTE | 2018-06-13 14:42 | DI.CT.S_ITS ---
PROCEDURE: CT ANGIO CHEST PE PROTOCOL INDICATIONS: syncope, tachycardia TECHNIQUE: After the administration of intravenous contrast, 2 mm thick sections acquired from the pulmonary apices to the posterior costophrenic angles. 3-dimensional maximum intensity projection (MIP) coronal and sagittal reformats were then acquired through the thorax. For radiation dose reduction, the following was used: automated exposure control, adjustment of mA and/or kV according to patient size. COMPARISON: [facility], CT, THORAX WITH CONTRAST, 02/21/2015, 9:23. [facility], CR, XR CHEST 1V, 06/13/2018, 12:24. FINDINGS: Image quality: There is slight motion artifact. Pulmonary arteries: There is suboptimal contrast opacification of the pulmonary arteries with nondiagnostic evaluation beyond the level of the right and left lobar pulmonary arteries. Lungs and pleura: There is mild atelectasis within the right lower lobe posteriorly. Minimal atelectasis also demonstrated in the left lower lobe. No definite consolidation. No pleural effusions or pneumothorax. Central and peripheral airways are patent. Mediastinum: Heart size is normal, without pericardial effusion. No mediastinal or hilar adenopathy. Thoracic aorta is normal in caliber and enhancement. There is a small hernia with mild concentric wall thickening of the distal esophagus. Bones and chest wall: No suspicious bony lesions. Ribs and thoracic spine appear intact throughout. Thyroid gland demonstrates a small hypoattenuating nodule in the left lobe measuring approximately 0.6 cm. No axillary or supraclavicular adenopathy. Abdomen: There is elevation of the right hemidiaphragm redemonstrated. There is hyperattenuation of the visualized liver compatible with fatty infiltration. Colonic diverticulosis is noted in the visualized upper abdomen. IMPRESSION: 1. Limited study for pulmonary embolism with nondiagnostic evaluation beyond the level of the main right or left lobar pulmonary arteries. 2. Mild atelectasis in the lung bases, right greater than left. 3. Small hilar hernia with mild concentric wall thickening in the distal esophagus suggestive of a nonspecific esophagitis. The findings may be associated with reflux. Dictated by: Twin Ravi M.D. on 06/13/2018 at 15:39 Approved by: Twin Ravi M.D. on 06/13/2018 at 15:46
--- NOTE | 2018-06-13 14:43 | DI.US.S_ITS ---
PROCEDURE: US ABDOMEN LIMITED INDICATIONS: elevated lipase, syncope TECHNIQUE: Real-time focused scanning was performed of the abdomen, with image documentation. COMPARISON: [facility], CT, CT ANGIO CHEST PE PROTOCOL, 06/13/2018, 14:58. FINDINGS: Image portions of the liver demonstrate diffusely increased echogenicity, which does result in difficulty evaluating the liver for liver lesions. No large liver lesions are evident. No intrahepatic or extrahepatic biliary dilatation is appreciated. The common bile duct measures up to approximately 6 mm in diameter. The gallbladder is slightly small in size. No cholelithiasis or gallbladder wall inflammation is appreciated. The pancreas is obscured by bowel gas. IMPRESSION: 1. No cholelithiasis or evidence of acute cholecystitis. 2. Hepatic steatosis. Please correlate clinically to exclude other chronic diseases. Dictated by: Dileep Haney M.D. on 06/13/2018 at 15:51 Approved by: Dileep Haney M.D. on 06/13/2018 at 15:52
[2018-06-13 16:44] LABS: Urine Amphetamines Negative (Negative); Urine Barbiturates Negative (Negative); Urine Benzodiazepines Negative (Negative); Urine Cocaine Negative (Negative); Urine MDMA Negative (Negative); Urine Methadone Negative (Negative); Urine Methamphetamines Negative (Negative); Urine Morphine/Opi cutoff 2000 Negative (Negative); Urine Oxycodone Negative (Negative); Urine Phencyclidine Negative (Negative); Urine Tetrahydrocannabinol Negative (Negative); Urine Tricyclic Antidepressant Negative (Negative)
--- NOTE | 2018-06-13 17:07 | PC.NURSE ---
Pt is a/o x 3. He states he does not want to stay in the hospital. Encouraged to reconsider. Pt continued to refuse. Up to walk to bathroom. HR 141 upon return to room. Pt was obviously short of breath w/ sat 94%, RR 30. Sat until felt improved. Again discussed risks of going home at this time. Girlfriend and pt verbalized understanding of when to return to ED. Pt verbalized understanding that girlfriend may call 911 for assistance even if he says he does not want the help at home. Pt ambulatory out of ED w/ girlfriend.
== END 2018-06-13 17:22 | disposition left against medical advice (07) ==
PROVIDERS: Emergency Provider Emergency Medicine; PCP Physician Assistant
DX: R55 Syncope and collapse (principal); R00.0 Tachycardia, unspecified
CPT/HCPCS: 36591; 70450; 71045; 71275; 76705; 80053; 80305; 80320; 81003; 82550; 82553; 83690; 84484; 85025; 85610; 85730; 93005; 96361; 96374; 96376; 99285; J2060

== ENCOUNTER 2018-06-15 15:27 | Emergency (ER) | payer BC, SELFPAY ==
[2018-06-15 15:33] VITALS: BP 158/96; PULSE 122; RESP 15; TEMP 37; O2SAT 95; BMI 28.5
--- NOTE | 2018-06-15 16:02 | ED.ARRPALP ---
HPI - Arrhythmia/Palpitations General Chief Complaint: Arrhythmia/Palpitations Stated Complaint: Shakey Time Seen by Provider: 06/15/18 15:52 Source: patient Mode of arrival: ambulatory Limitations: no limitations History of Present Illness HPI narrative: This is a 58-year-old male who comes to the emergency sent from or she should please office patient was actually seen by myself on Tuesday for syncopal episode while he was at work. There is discussion he drinks quite a bit of alcohol on his suspected alcohol withdrawal. He had a cardiac evaluation, head CT and chest x-ray that showed a slightly elevated lipase continuous tachycardia. He responded moderately to some Ativan and fluids but continued to be tachycardic and slightly shaking department. Discussed with patient he has not had any new changes since then. Is not any more syncopal episodes, he denies any chest pain, shortness of breath, no nausea no vomiting, no other GI or urinary symptoms. States when he drinks the shaking goes away. He is not sure if his heart rate is elevated normally at home but he states every time it is checked or he checks it with a blood pressure cuff is typically elevated. Patient states his last drink was last night he states he did have a lot of alcohol to drink. He states typically on the weekends he will drink daytime and nighttime shaking is resolved but Tuesday mornings difficult because he does not drink when he is work. He was allowed to return home so EMS could pick him up from here to emergency department he states did have a drink at home to see if he could help with this shaking. Related Data Home Medications Medication Instructions Recorded Confirmed amlodipine 10 mg PO QPM 06/13/18 06/15/18 lisinopril-hydrochlorothiazide 1 tab PO DAILY 06/13/18 06/15/18 vejvuwef-jbf-GD-lycopen-lutein 1 tab PO DAILY 06/13/18 06/15/18 [Centrum Silver] naproxen sodium [Aleve] 1 dose PO PRN PRN 06/15/18 06/15/18 Allergies Allergy/AdvReac Type Severity Reaction Status Date / Time No Known Drug Allergies Allergy Verified 06/13/18 11:42 Review of Systems Review of Systems ROS Unobtainable: All systems reviewed & are unremarkable except as noted in HPI and below Constitutional Denies chills, Denies fever(s) and Denies weakness Cardiovascular Denies chest pain, Denies diaphoresis, Denies syncope (had last ER visit. ), Denies edema, Denies lightheadedness and Denies dyspnea Respiratory Denies cough, Denies pain on inspiration and Denies dyspnea Gastrointestinal Gastrointestinal: Denies abdominal pain, Denies change in bowel habits, Denies diarrhea, Denies nausea and Denies vomiting Neurologic Denies syncope (had last ER visit. ), Denies seizure-like activity, Denies sensory deficit, Reports tremor(s) and Denies weakness [facility] Medical History Hypertension (Acute) Surgical History H/O hernia repair (Acute) History of tonsillectomy (Acute) Family History Grandmother No problems noted. Social History Smoking Status: Unknown if ever smoked alcohol intake: current substance use type: does not use Exam Narrative Exam Narrative: GENERAL: Alert and oriented x three, well-nourished male in mild distress. HEENT: Head normocephalic, atraumatic, EOMI, pupils reactive, face symmetric, moist mucous membranes NECK: Supple, full range of motion CARDIOVASCULAR: Tachycardic but regular rate and rhythm without murmurs, rubs or gallops. RESPIRATORY: Breath sounds equal bilaterally, no wheezes rales or rhonchi. ABDOMEN: Soft, nontender. Normoactive bowel sounds all 4 quadrants. No guarding or rebound, rigidity, no mass : No CVA tenderness EXTREMITIES: Normal range of motion, no clubbing or edema. Neurovascularly intact NEUROLOGICAL: Cranial nerves II through XII grossly intact. Moving all extremities. Patient has mild generalized tremor. SKIN: Warm, dry, no petechiae, no rashes or lesions. Initial Vital Signs Initial Vital Signs: Vital Signs Temperature 98.6 F 06/15/18 15:33 Pulse Rate 122 H 06/15/18 15:33 Respiratory Rate 15 06/15/18 15:33 Blood Pressure 158/96 H 06/15/18 15:33 Pulse Oximetry 95 06/15/18 15:33 Course Orders Ordered: ED Orders 06/15/18 15:34 Complete Blood Count AUTO DIFF Stat Comprehensive Metabolic Panel Stat Lipase Stat Partial Thromboplastin Time Stat Prothrombin Time INR Stat Troponin & CK Cardiac Panel Stat 06/15/18 15:39 EKG-12 Lead Stat 06/15/18 16:01 XR chest 1V Stat Discontinued Medications Magnesium Sulfate 2 gm/ Folic Acid 1 mg/ Thiamine HCl 100 mg / Multivitamins 10 ml/ Sodium Chloride 1,015.2 mls @ 125 mls/hr IV NOW ONE Stop: 06/16/18 00:08 Last Infusion: 06/15/18 17:34 Dose: 0 mls/hr Admin: 06/15/18 16:31 Dose: 125 mls/hr Lorazepam (Ativan) 2 mg IV NOW ONE Stop: 06/15/18 16:01 Last Admin: 06/15/18 16:18 Dose: 2 mg Vital Signs - 8 hr 06/15/18 15:33 06/15/18 16:09 06/15/18 16:30 Temperature 98.6 F Pulse Rate 122 H 122 H 123 H Respiratory Rate 15 19 21 Blood Pressure 158/96 H Blood Pressure [Left Arm] 148/107 H 145/108 H Pulse Oximetry 95 94 93 06/15/18 17:00 06/15/18 17:35 Temperature Pulse Rate 117 H 114 H Respiratory Rate 19 Blood Pressure 146/115 H Blood Pressure [Left Arm] 146/115 H Pulse Oximetry 95 94 MDM - Arrhythmia/Palpitations Lab Data Attestation: I reviewed the patient's lab results. Result diagrams: 06/15/18 15:34 06/15/18 15:34 Lab Results 06/15/18 06/15/18 06/15/18 Range/Units 15:34 15:34 15:34 WBC 9.0 (4.5-11.0) X10^3/uL RBC 4.50 (4.5-5.9) X10^6/uL Hgb 15.7 (13.5-17.5) g/dL Hct 44.1 (41-53) % MCV 97.9 (80-100) fL MCH 34.8 H (26-34) PG MCHC 35.6 (30-36) % RDW 13.8 (11.6-14.8) % Plt Count 239 (150-400) X10^3/uL Neut % (Auto) 77.3 H (50-75) % Lymph % (Auto) 12.3 L (25-40) % [place] % (Auto) 9.9 (3-14) % Eos % (Auto) 0.2 L (2-4) % Baso % (Auto) 0.3 (0-2) % Neut # (Auto) 6900 (5768-8682) /uL PT 10.5 (10.1-12.7) SECONDS INR 0.9 (0.9-1.3) APTT 28 D (26.4-36.2) SECONDS Sodium 141 (137-145) mmol/L Potassium 3.6 (3.4-5.1) mmol/L Chloride 100 (98-107) mmol/L Carbon Dioxide 23 (22-32) mmol/L BUN 21 H (9-20) mg/dL Creatinine 1.00 (0.66-1.25) mg/dL Estimated GFR > 60.0 (>60) mL/min BUN/Creatinine Ratio 21.0 (6-22) Glucose 99 (70-100) mg/dL Calcium 10.5 H (8.4-10.2) mg/dL Total Bilirubin 0.9 (0.2-1.3) mg/dL AST 62 H (17-59) IU/L ALT 49 (21-72) IU/L Alkaline Phosphatase 66 (38-126) U/L Total Creatine Kinase 271 H (55-170) U/L CK-MB (CK-2) 0.88 (<2.37) ng/mL CK-MB (CK-2) Rel Index 0.3 L (1.5-5.0) % Troponin I < 0.012 (0.01-0.034) ng/mL Total Protein 8.0 (6.3-8.2) g/dL Albumin 4.8 (3.5-5.0) g/dL Globulin 3.2 (1.7-4.1) g/dL Albumin/Globulin Ratio 1.5 (1.0-2.8) Lipase 438 H (23-300) U/L Imaging Data Chest x-ray: Radiologist's impression: [address] [address] XRay Report Signed Patient: Jackeline MR#: [id number] : 1960 Acct:[id number] Age/Sex: 58 / M Date of Service: 06/15/18 Loc: ED Accession Number: [id number] Procedure: XR chest 1V Ordering Provider: Harini Barahona D.O. PROCEDURE: XR CHEST 1V INDICATIONS: tachycardia, etoh withdrawl TECHNIQUE: One view of the chest was acquired. COMPARISON: [facility], CR, XR CHEST 1V, 06/13/2018, 12:24. FINDINGS: Surgical changes and devices: None. Lungs and pleura: No pleural effusions or pneumothorax. Lungs are clear. There is elevation of the right hemidiaphragm, as before. Mediastinum: Mediastinal contours appear normal. Heart size is normal. Bones and chest wall: No suspicious bony lesions. Overlying soft tissues appear unremarkable. IMPRESSION: No acute cardiopulmonary findings. Dictated by: Ana Rosa Kaiser M.D. on 06/15/2018 at 16:17 Approved by: Ana Rosa Kaiser M.D. on 06/15/2018 at 16:18 ECG Data Attestation: I personally reviewed and interpreted this ECG as follows: Prior ECG tracings: available for review Interpretation: Sinus tachycardia with occasional PVCs. Ventricular rate of 120 P are interval of 172 [place] 92 and QTC of 384. No ST elevation or depression. MDM Narrative Medical decision making narrative: Discussed with patient his lab work shows slightly elevated lipase, her enzymes negative, the risks of lab work does not show any major abnormalities. Chest x-ray does not show any acute changes. Discussed with him and patient does continue to drink but states that he does feel like he does withdrawal during the day was not alcohol. We discussed alcohol detox for his withdrawal symptoms and at this time he defers. We did discuss options such as inpatient medical detox, outpatient detox, as well as giving patient options for him to call. At this time patient wishes to return home, he is not sure if he wishes to stop drinking at this time although he is expressing some interest. We did discuss that I do not think that he would do well detoxing at home with oral medications but if he wanted to he could talk to his primary care. He also expressed some interest in medical detox or being inpatient but ultimately decided not to stay. Is alert, appropriate answering questions and understands the risk and benefits and seems competent to make these decisions at this time. I suspect that his tachycardia improves when he is at home and non alcohol withdrawal and drinking. We did discuss that there could be other causes but were not found at his last visit or todays. We did also discuss that his pancreatic enzymes have been slightly elevated likely secondary to his ETOH use. We discussed that this will probably worsen and he probably developed pancreatitis future. Discharge Plan Departure Patient Disposition: Home Clinical Impression: Alcohol withdrawal, Tachycardia Discharge Date/Time: 06/15/18 17:53 Interventions: ED Discharge Assessment Last Done: 06/15/18 17:35 Instructions: DI for Delirium Tremens Activity Restrictions/Additional Instructions: Follow up with your physician. If you would like to stop drinking alcohol you do not want to stop suddenly without treatment or medication as you can have severe alcohol withdrawl. Return to the ER for passing out, worsening symptoms, hallucinations, seizures, altered mental status, persistent vomiting, chest pain or shortness of breath or other new or concerning symptoms. Prescriptions: No Action amlodipine 10 mg tablet 10 mg PO QPM RF: 0 lisinopril-hydrochlorothiazide 20-25 mg tablet 1 tab PO DAILY RF: 0 idhplmbs-sum-ZI-lycopen-lutein [Centrum Silver] 0.4-300-250 mg-mcg-mcg Tablet 1 tab PO DAILY RF: 0 naproxen sodium [Aleve] 220 mg Tablet 1 dose PO PRN PRN (Reason: pain) RF: 0 Referrals: Shelly Aldana PA-C [Primary Care Provider] -
--- NOTE | 2018-06-15 16:07 | ED_ITS ---
HPI - Arrhythmia/Palpitations General Chief Complaint: Arrhythmia/Palpitations Stated Complaint: Shakey Time Seen by Provider: 06/15/18 15:52 Source: patient Mode of arrival: ambulatory Limitations: no limitations History of Present Illness HPI narrative: This is a 58-year-old male who comes to the emergency sent from or she should please office patient was actually seen by myself on Tuesday for syncopal episode while he was at work. There is discussion he drinks quite a bit of alcohol on his suspected alcohol withdrawal. He had a cardiac evaluation , head CT and chest x-ray that showed a slightly elevated lipase continuous tachycardia. He responded moderately to some Ativan and fluids but continued to be tachycardic and slightly shaking department. Discussed with patient he has not had any new changes since then. Is not any more syncopal episodes, he denies any chest pain, shortness of breath, no nausea no vomiting, no other GI or urinary symptoms. States when he drinks the shaking goes away. He is not sure if his heart rate is elevated normally at home but he states every time it is checked or he checks it with a blood pressure cuff is typically elevated. Patient states his last drink was last night he states he did have a lot of alcohol to drink. He states typically on the weekends he will drink daytime and nighttime shaking is resolved but Tuesday mornings difficult because he does not drink when he is work. He was allowed to return home so EMS could pick him up from here to emergency department he states did have a drink at home to see if he could help with this shaking. Related Data Home Medications Medication Instructions Recorded Confirmed amlodipine 10 mg PO QPM 06/13/18 06/15/18 lisinopril-hydrochlorothiazide 1 tab PO DAILY 06/13/18 06/15/18 vswtslcm-evk-JD-lycopen-lutein 1 tab PO DAILY 06/13/18 06/15/18 [Centrum Silver] naproxen sodium [Aleve] 1 dose PO PRN PRN 06/15/18 06/15/18 Allergies Allergy/AdvReac Type Severity Reaction Status Date / Time No Known Drug Allergies Allergy Verified 06/13/18 11:42 Review of Systems Review of Systems ROS Unobtainable: All systems reviewed & are unremarkable except as noted in HPI and below Constitutional Denies chills, Denies fever(s) and Denies weakness Cardiovascular Denies chest pain, Denies diaphoresis, Denies syncope (had last ER visit. ), Denies edema, Denies lightheadedness and Denies dyspnea Respiratory Denies cough, Denies pain on inspiration and Denies dyspnea Gastrointestinal Gastrointestinal: Denies abdominal pain, Denies change in bowel habits, Denies diarrhea, Denies nausea and Denies vomiting Neurologic Denies syncope (had last ER visit. ), Denies seizure-like activity, Denies sensory deficit, Reports tremor(s) and Denies weakness [facility] Medical History Hypertension (Acute) Surgical History H/O hernia repair (Acute) History of tonsillectomy (Acute) Family History Grandmother No problems noted. Social History Smoking Status: Unknown if ever smoked alcohol intake: current substance use type: does not use Exam Narrative Exam Narrative: GENERAL: Alert and oriented x three, well-nourished male in mild distress. HEENT: Head normocephalic, atraumatic, EOMI, pupils reactive, face symmetric, moist mucous membranes NECK: Supple, full range of motion CARDIOVASCULAR: Tachycardic but regular rate and rhythm without murmurs, rubs or gallops. RESPIRATORY: Breath sounds equal bilaterally, no wheezes rales or rhonchi. ABDOMEN: Soft, nontender. Normoactive bowel sounds all 4 quadrants. No guarding or rebound, rigidity, no mass : No CVA tenderness EXTREMITIES: Normal range of motion, no clubbing or edema. Neurovascularly intact NEUROLOGICAL: Cranial nerves II through XII grossly intact. Moving all extremities. Patient has mild generalized tremor. SKIN: Warm, dry, no petechiae, no rashes or lesions. Initial Vital Signs Initial Vital Signs: Vital Signs Temperature 98.6 F 06/15/18 15:33 Pulse Rate 122 H 06/15/18 15:33 Respiratory Rate 15 06/15/18 15:33 Blood Pressure 158/96 H 06/15/18 15:33 Pulse Oximetry 95 06/15/18 15:33 Course Orders Ordered: ED Orders 06/15/18 15:34 Complete Blood Count AUTO DIFF Stat Comprehensive Metabolic Panel Stat Lipase Stat Partial Thromboplastin Time Stat Prothrombin Time INR Stat Troponin & CK Cardiac Panel Stat 06/15/18 15:39 EKG-12 Lead Stat 06/15/18 16:01 XR chest 1V Stat Discontinued Medications Magnesium Sulfate 2 gm/ Folic Acid 1 mg/ Thiamine HCl 100 mg / Multivitamins 10 ml/ Sodium Chloride 1,015.2 mls @ 125 mls/hr IV NOW ONE Stop: 06/16/18 00:08 Last Infusion: 06/15/18 17:34 Dose: 0 mls/hr Admin: 06/15/18 16:31 Dose: 125 mls/hr Lorazepam (Ativan) 2 mg IV NOW ONE Stop: 06/15/18 16:01 Last Admin: 06/15/18 16:18 Dose: 2 mg Vital Signs - 8 hr 06/15/18 15:33 06/15/18 16:09 06/15/18 16:30 Temperature 98.6 F Pulse Rate 122 H 122 H 123 H Respiratory Rate 15 19 21 Blood Pressure 158/96 H Blood Pressure [Left Arm] 148/107 H 145/108 H Pulse Oximetry 95 94 93 06/15/18 17:00 06/15/18 17:35 Temperature Pulse Rate 117 H 114 H Respiratory Rate 19 Blood Pressure 146/115 H Blood Pressure [Left Arm] 146/115 H Pulse Oximetry 95 94 MDM - Arrhythmia/Palpitations Lab Data Attestation: I reviewed the patient's lab results. Result diagrams: 06/15/18 15:34 06/15/18 15:34 Lab Results 06/15/18 06/15/18 06/15/18 Range/Units 15:34 15:34 15:34 WBC 9.0 (4.5-11.0) X10^3/uL RBC 4.50 (4.5-5.9) X10^6/uL Hgb 15.7 (13.5-17.5) g/dL Hct 44.1 (41-53) % MCV 97.9 (80-100) fL MCH 34.8 H (26-34) PG MCHC 35.6 (30-36) % RDW 13.8 (11.6-14.8) % Plt Count 239 (150-400) X10^3/uL Neut % (Auto) 77.3 H (50-75) % Lymph % (Auto) 12.3 L (25-40) % [place] % (Auto) 9.9 (3-14) % Eos % (Auto) 0.2 L (2-4) % Baso % (Auto) 0.3 (0-2) % Neut # (Auto) 6900 (9593-6480) /uL PT 10.5 (10.1-12.7) SECONDS INR 0.9 (0.9-1.3) APTT 28 D (26.4-36.2) SECONDS Sodium 141 (137-145) mmol/L Potassium 3.6 (3.4-5.1) mmol/L Chloride 100 (98-107) mmol/L Carbon Dioxide 23 (22-32) mmol/L BUN 21 H (9-20) mg/dL Creatinine 1.00 (0.66-1.25) mg/dL Estimated GFR > 60.0 (>60) mL/min BUN/Creatinine Ratio 21.0 (6-22) Glucose 99 (70-100) mg/dL Calcium 10.5 H (8.4-10.2) mg/dL Total Bilirubin 0.9 (0.2-1.3) mg/dL AST 62 H (17-59) IU/L ALT 49 (21-72) IU/L Alkaline Phosphatase 66 (38-126) U/L Total Creatine Kinase 271 H (55-170) U/L CK-MB (CK-2) 0.88 (<2.37) ng/mL CK-MB (CK-2) Rel Index 0.3 L (1.5-5.0) % Troponin I < 0.012 (0.01-0.034) ng/mL Total Protein 8.0 (6.3-8.2) g/dL Albumin 4.8 (3.5-5.0) g/dL Globulin 3.2 (1.7-4.1) g/dL Albumin/Globulin Ratio 1.5 (1.0-2.8) Lipase 438 H (23-300) U/L Imaging Data Chest x-ray: Radiologist's impression: [address] [address] XRay Report Signed Patient: Jackeline MR#: [id number] : 1960 Acct:[id number] Age/Sex: 58 / M Date of Service: 06/15/18 Loc: ED Accession Number: [id number] Procedure: XR chest 1V Ordering Provider: Harini Barahona D.O. PROCEDURE: XR CHEST 1V INDICATIONS: tachycardia, etoh withdrawl TECHNIQUE: One view of the chest was acquired. COMPARISON: [facility], CR, XR CHEST 1V, 06/13/2018, 12:24. FINDINGS: Surgical changes and devices: None. Lungs and pleura: No pleural effusions or pneumothorax. Lungs are clear. There is elevation of the right hemidiaphragm, as before. Mediastinum: Mediastinal contours appear normal. Heart size is normal. Bones and chest wall: No suspicious bony lesions. Overlying soft tissues appear unremarkable. IMPRESSION: No acute cardiopulmonary findings. Dictated by: Ana Rosa Kaiser M.D. on 06/15/2018 at 16:17 Approved by: Ana Rosa Kaiser M.D. on 06/15/2018 at 16:18 ECG Data Attestation: I personally reviewed and interpreted this ECG as follows: Prior ECG tracings: available for review Interpretation: Sinus tachycardia with occasional PVCs. Ventricular rate of 120 P are interval of 172 [place] 92 and QTC of 384. No ST elevation or depression. MDM Narrative Medical decision making narrative: Discussed with patient his lab work shows slightly elevated lipase, her enzymes negative, the risks of lab work does not show any major abnormalities. Chest x-ray does not show any acute changes. Discussed with him and patient does continue to drink but states that he does feel like he does withdrawal during the day was not alcohol. We discussed alcohol detox for his withdrawal symptoms and at this time he defers. We did discuss options such as inpatient medical detox, outpatient detox, as well as giving patient options for him to call. At this time patient wishes to return home, he is not sure if he wishes to stop drinking at this time although he is expressing some interest. We did discuss that I do not think that he would do well detoxing at home with oral medications but if he wanted to he could talk to his primary care. He also expressed some interest in medical detox or being inpatient but ultimately decided not to stay. Is alert, appropriate answering questions and understands the risk and benefits and seems competent to make these decisions at this time. I suspect that his tachycardia improves when he is at home and non alcohol withdrawal and drinking. We did discuss that there could be other causes but were not found at his last visit or todays. We did also discuss that his pancreatic enzymes have been slightly elevated likely secondary to his ETOH use. We discussed that this will probably worsen and he probably developed pancreatitis future. Discharge Plan Departure Patient Disposition: Home Clinical Impression: Alcohol withdrawal, Tachycardia Discharge Date/Time: 06/15/18 17:53 Interventions: ED Discharge Assessment Last Done: 06/15/18 17:35 Instructions: DI for Delirium Tremens Activity Restrictions/Additional Instructions: Follow up with your physician. If you would like to stop drinking alcohol you do not want to stop suddenly without treatment or medication as you can have severe alcohol withdrawl. Return to the ER for passing out, worsening symptoms, hallucinations, seizures, altered mental status, persistent vomiting, chest pain or shortness of breath or other new or concerning symptoms. Prescriptions: No Action amlodipine 10 mg tablet 10 mg PO QPM RF: 0 lisinopril-hydrochlorothiazide 20-25 mg tablet 1 tab PO DAILY RF: 0 nxxilzrv-vrc-XG-lycopen-lutein [Centrum Silver] 0.4-300-250 mg-mcg-mcg Tablet 1 tab PO DAILY RF: 0 naproxen sodium [Aleve] 220 mg Tablet 1 dose PO PRN PRN (Reason: pain) RF: 0 Referrals: Shelly Aldana PA-C [Primary Care Provider] -
[2018-06-15 16:09] VITALS: BP 148/107; PULSE 122; RESP 19; O2SAT 94
[2018-06-15 16:09] LABS: Add Manual Diff / Slide Review NO; Basophils Percent Auto 0.3 % (0-2); Eosinophils Percent Auto 0.2 % (2-4); Hematocrit 44.1 % (41-53); Hemoglobin 15.7 g/dL (13.5-17.5); Lymphocytes Percent Auto 12.3 % (25-40); Mean Corpuscular HGB Conc 35.6 % (30-36); Mean Corpuscular Hemoglobin 34.8 PG (26-34); Mean Corpuscular Volume 97.9 fL (80-100); Monocytes Percent Auto 9.9 % (3-14); Neutrophils Absolute Auto 6900 /uL (1500-7000); Neutrophils Percent Auto 77.3 % (50-75); Platelet Count 239 X10^3/uL (150-400); Red Cell Distribution Width 13.8 % (11.6-14.8)
[2018-06-15 16:10] LABS: INR 0.9 (0.9-1.3); Prothrombin Time 10.5 SECONDS (10.1-12.7)
[2018-06-15 16:13] LABS: PTT Partial Thromboplastin Tim 28 SECONDS (26.4-36.2)
[2018-06-15] MEDS: LORazepam 2 MG/ML SYRINGE IV (16:18)
[2018-06-15 16:20] LABS: Alanine Aminotransferase 49 IU/L (21-72); Albumin 4.8 g/dL (3.5-5.0); Albumin Globulin Ratio 1.5 (1.0-2.8); Alkaline Phosphatase 66 U/L (38-126); Aspartate Aminotransferase 62 IU/L (17-59); Bilirubin Total 0.9 mg/dL (0.2-1.3); Blood Urea Nitrogen 21 mg/dL (9-20); Calcium 10.5 mg/dL (8.4-10.2); Carbon Dioxide 23 mmol/L (22-32); Chloride 100 mmol/L (98-107); Creatine Kinase 271 U/L (55-170); Estimated Glomerular Filt Rate > 60.0 mL/min (>60); Globulin 3.2 g/dL (1.7-4.1); Glucose 99 mg/dL (70-100); HEMOLYSIS 21 (0-50); Lipase 438 U/L (23-300); Potassium 3.6 mmol/L (3.4-5.1); Sodium 141 mmol/L (137-145)
[2018-06-15 16:30] VITALS: BP 145/108; PULSE 123; RESP 21; O2SAT 93
[2018-06-15] MEDS: MAGNESIUM SULFATE 2 GM, FOLIC ACID 1 MG, THIAMINE 100 MG, MULTIVITAMIN 10 ML in SODIUM ... IV (16:31)
[2018-06-15 16:32] LABS: Troponin I < 0.012 ng/mL (0.01-0.034)
[2018-06-15 16:36] LABS: CKMB % Relative Index 0.3 % (1.5-5.0); Creatine Kinase MB 0.88 ng/mL (<2.37)
[2018-06-15 17:00] VITALS: BP 146/115; PULSE 117; RESP 19; O2SAT 95
[2018-06-15 17:35] VITALS: BP 146/115; PULSE 114; O2SAT 94
== END 2018-06-15 17:53 | disposition home or self-care (01) ==
PROVIDERS: Emergency Provider Emergency Medicine; PCP Physician Assistant
DX: F10.239 Alcohol dependence with withdrawal, unspecified (principal); R00.0 Tachycardia, unspecified
CPT/HCPCS: 36591; 71045; 80053; 82550; 82553; 83690; 84484; 85025; 85610; 85730; 93005; 96365; 96374; 96375; 99283; 99285; J2060; J3475

== ENCOUNTER → 2019-04-27 10:34 | Outpatient (CLI) | payer BC, SELFPAY ==
--- NOTE | 2019-04-27 | DI.RAD.S_ITS ---
PROCEDURE: XR SHOULDER RT MIN 2V INDICATIONS: chronic shoulder pain TECHNIQUE: 3 views of the shoulder were acquired. COMPARISON: None. FINDINGS: Bones: Moderate right glenohumeral joint and acromioclavicular joint osteoarthritic changes are seen. No fractures or dislocations. No suspicious bony lesions. Visualized ribs appear intact. Soft tissues: No suspicious soft tissue calcifications. IMPRESSION: Right shoulder joint osteoarthritis. No fracture or dislocation. Dictated by: Daniel Stahl M.D. on 04/27/2019 at 13:04 Approved by: Daniel Stahl M.D. on 04/27/2019 at 13:04
--- NOTE | 2019-04-27 | DI.RAD.S_ITS ---
PROCEDURE: XR SHOULDER LT MIN 2V INDICATIONS: chronic shoulder pain TECHNIQUE: 3 views of the shoulder were acquired. COMPARISON: None. FINDINGS: Bones: No fractures or dislocations. Mild left acromioclavicular joint and glenohumeral joint osteophytic changes are seen. No suspicious bony lesions. Visualized ribs appear intact. Soft tissues: No suspicious soft tissue calcifications. IMPRESSION: Mild left shoulder joint osteoarthritis. No fracture or dislocation. Dictated by: Daniel Stahl M.D. on 04/27/2019 at 13:04 Approved by: Daniel Stahl M.D. on 04/27/2019 at 13:20
== END ==
LOC: LAB 10:37 → RAD 10:59
PROVIDERS: PCP Student in an Organized Health Care Education/Training Program; Visit Provider Student in an Organized Health Care Education/Training Program
DX: M25.511 Pain in right shoulder (principal); M25.512 Pain in left shoulder; M19.011 Primary osteoarthritis, right shoulder; M19.012 Primary osteoarthritis, left shoulder; I10 Essential (primary) hypertension; G89.29 Other chronic pain
CPT/HCPCS: 73030

== ENCOUNTER → 2020-05-08 09:04 | Outpatient (CLI) | payer OTHER, SELFPAY ==
[2020-05-08 11:19] LABS: COVID19 -Nasal RAPID Negative (Negative)
== END ==
PROVIDERS: PCP Student in an Organized Health Care Education/Training Program; Visit Provider Surgery
DX: Z11.59 Encounter for screening for other viral diseases (principal)
CPT/HCPCS: 87635

== ENCOUNTER 2020-05-09 07:24 | Day surgery (SDC) | payer OTHER, SELFPAY ==
[2020-05-09] VITALS (8 sets, daily range): BP systolic 96–127; BP diastolic 68–95; PULSE 96–111; RESP 14–21; TEMP 37–37.5; O2SAT 92–100; BMI 29.8
[2020-05-09] MEDS: SODIUM CHLORIDE 0.9% 1,000 ML 200 ML IV (08:05)
--- NOTE | 2020-05-09 08:21 | PM.HP.1 ---
History of Present Illness History of Present Illness Date Patient Seen: 05/09/20 Time Patient Seen: 08:24 Chief complaint: SDC Narrative: This is a 60-year-old man who has never had a screening colonoscopy. He denies any history of melena, hematochezia, unexplained abdominal pain, unexplained weight loss, known family history of polyps or colon cancers. He says he is otherwise healthy other than some hypertension, and history of alcoholism. He says he has not had a drink in about 2 years. ROS Thirteen system review is otherwise negative other than as mentioned below and in HPI. PE: GENERAL: Well groomed and cooperative. Appears stated age. Answers questions promptly and appropriately. Vital signs noted. HENT: Normocephalic, atraumatic. Hearing intact. EYES: Conjunctiva pink, sclera white, no periorbital swelling. CARDIOVASCULAR: Regular rate. No pedal edema. RESPIRATORY: Non-tachypneic, breathing comfortably on room air. GASTROINTESTINAL: Abdomen soft and non-distended GENITALURINARY: No flank tenderness. MUSCULOSKELETAL: Equal tone and mass bilaterally. SKIN: Warm, dry, soft, appropriate color for ethnicity. No other lesions, rashes, or wounds. NEURO: Alert and Oriented X 3. No gross sensory deficits, or cognitive issues. PSYCH: Appropriate affect and mood. Patient History Medical History (Updated 05/09/20 @ 08:25 by Petra Mitchell MD) Hypertension Surgical History H/O hernia repair History of tonsillectomy Family & Social History Family History Grandmother No problems noted. Social History: household members significant other Tobacco & Substance use: Smoking Status Never smoker alcohol intake former Substance Use Type does not use Meds Home Medications and Allergies Home Medications Medication Instructions Recorded Confirmed Type amlodipine 10 mg PO QPM 06/13/18 05/09/20 History lisinopril-hydrochlorothiazide 1 tab PO DAILY 06/13/18 05/09/20 History fskxyuiw-zpb-RY-lycopen-lutein 1 tab PO DAILY 06/13/18 05/09/20 History [Centrum Silver] naproxen sodium [Aleve] 1 dose PO PRN PRN 06/15/18 05/09/20 History Allergies Allergy/AdvReac Type Severity Reaction Status Date / Time No Known Drug Allergies Allergy Verified 06/13/18 11:42 Exam Vital Signs (past 8 hours): - 05/09/20 07:47 Temperature 99.5 F Pulse Rate 107 H Respiratory Rate 16 Blood Pressure 119/70 Pulse Oximetry 95 Oxygen Delivery Method Room Air Assessment & Plan Assessment and plan (1) At average risk for colon cancer: Status: Acute Assessment & Plan narrative: Risks and benefits of screening colonoscopy and possible polypectomy were discussed with the patient including risk of bleeding, perforation, need for additional procedures, risks of anesthesia. The patient desires to proceed with the colonoscopy procedure. COVID-19 COVID-19 status: Negative Result date/Date tested (Pos, Neg/Pending): 05/08/20 Time Spent With Patient Time with patient: 15-24 minutes Quality VTE Deep Vein Thrombosis/Pulmonary Embolism Present on Admission: No
[2020-05-09] MEDS: fentaNYL 250 MCG/5 ML INJ IV (08:29)
[2020-05-09] MEDS: MIDAZOLAM 5 MG/5 ML VIAL IV (08:29)
--- NOTE | 2020-05-09 08:55 | PM.OP.ENDO ---
Operative Date/Time/Diagnoses Date of procedure: 05/09/20 Time of procedure: 08:55 Pre-op diagnosis: Average risk for colon cancer, never had a screening colonoscopy Post-op diagnosis: other (Diverticulosis throughout the entire colon, most severe in the descending and sigmoid colon) Procedure & Clinicians Study performed: Colonoscopy Procedural sedation performed by the endoscopist Indications: Never had a screening colonoscopy Surgeon: Petra Mitchell Procedure Notes SCOAP/Timeout: Performed Procedure in detail: The patient was brought to the room and placed in left lateral decubitus position with all bony prominences padded. A time-out was performed and then the patient was given procedural sedation starting with 4 mg of Versed and 100 mcg of fentanyl. Total of 10 mg of Versed and 250 micro g of fentanyl were given for the entire procedure. Vitals were monitored throughout the procedure and remained stable. Once adequately sedated, the procedure was begun. A rectal exam was performed revealing no abnormalities. The colonoscope was then introduced to the rectum and advanced to the cecum in the usual fashion. The colon was very tortuous and required many additional maneuvers to reach the cecum safely including losing the stiffener and counter pressure on the abdominal wall. The patient was very active and required additional doses of Versed and order to complete the procedure. The cecum was identified by the appendiceal orifice, the mucosal tri-fold, and the ileocecal valve. The scope was then retracted while rotating side to side and examining each mucosal fold. Significant diverticulosis was seen in the descending and sigmoid colon, and scattered diverticulosis was seen throughout the entire colon. No polyps or masses were seen. At the conclusion of the procedure retroflexion was performed and small grade 1-2 internal hemorrhoids without stigmata of bleeding were seen. The scope was then withdrawn from the rectum the procedure was concluded. The patient tolerated the procedure well and was transferred to the PACU in stable condition. Scope withdrawal time: 8 Sedation minutes: 31 Findings: diverticulosis Specimen(s): none sent Complications: none Impression: Extensive diverticulosis Post-procedure Recommendations: Colonscopy in 10 years and Other recommendation (Use a fiber supplement to prevent further formation of diverticulosis and episodes of diverticulitis) Follow up: as needed Disposition: PACU
--- NOTE | 2020-05-09 09:59 | SUR.PHASEII ---
pt states he understands d/c instructions . No complaints voiced and no distress noted.
== END 2020-05-09 10:00 | disposition home or self-care (01) ==
PROVIDERS: PCP Student in an Organized Health Care Education/Training Program; Referring Provider Student in an Organized Health Care Education/Training Program; Visit Provider Surgery
PROC: 0DJD8ZZ Inspection of Lower Intestinal Tract, Via Natural or Artificial Opening Endoscopic (ICD-10-PCS; CPT 45378; principal; 2020-05-09 08:30)
DX: K57.30 Diverticulosis of large intestine without perforation or abscess without bleeding (principal); I10 Essential (primary) hypertension; K64.0 First degree hemorrhoids; Z12.11 Encounter for screening for malignant neoplasm of colon
CPT/HCPCS: 45378; 99152; 99153; J2250; J3010